=== PATIENT | female | born 1995 | race Caucasian/White ===

== ENCOUNTER 2017-01-06 21:10 | Emergency (ER) | payer OTHER ==
[2017-01-06 21:17] VITALS: BP 102/76; PULSE 98; TEMP 98.7; BMI 19.8
--- NOTE | 2017-01-06 21:52 | PDOC ---
History of Present Illness - General Chief Complaint: Injury Stated Complaint: FALL Time Seen by Provider: 01/06/17 21:21 History Source: Patient Exam Limitations: No Limitations - History of Present Illness Initial Comments: 01/06/17 21:58 This is a 21-year-old female who comes in for evaluation status post fall during [employer] practice. Patient was tossed into the air and not caught. When she came down she landed on a mat on her left side. Patient's head struck the mat however she denied any loss of consciousness headache, change in vision or neurological complaints. Patient's only complaint at this time is some mild discomfort in the left ankle area. Patient is been able to ambulate on the ankle without difficulty. Patient denies any other pain or injury. PAST MEDICAL HISTORY: no significant history PAST SURGICAL HISTORY: no significant history FAMILY HISTORY: no pertinant history SOCIAL HISTORY: Pt lives with family and attends school MEDICATIONS: reviewed ALLERGIES: As per nursing notes Review of Systems General: No fevers or chills, no weakness, no weight loss HEENT: No change in vision. No sore throat,. No ear pain CardioVascular: No chest pain or shortness of breath Respiratory:No cough, or wheezing. Gastrointestinal: no nausea, vomitting, diarrhea or constipation, No rectal bleeding Genitourinary: No dysuria, hematuria, or frequency Musculoskeletal: Left ankle as per history of present illnessizziness or loss of consciousness Psychiatric: nor depression Skin: No rashes or easy bruising Endocrine: no increased thirst or abnormal weight change Allergic: no skin or latex allergy All other systems reviewed and normal GENERAL: The patient is awake, alert, and fully oriented, in no acute distress. HEAD: Normal with no signs of trauma. Cervical, lumbar, and thoracic spine no tenderness on palpation. EYES: Pupils equal, round and reactive to light, extraocular movements intact, sclera anicteric, conjunctiva clear. EXTREMITIES: Normal range of motion, no edema. Left ankle: There is no ecchymosis or swelling of the ankle. There is no bony tenderness of the ankle foot or lower leg. There is some mild tenderness of the soft tissues of the ankle. Neurovascular is intact. NEUROLOGICAL: Normal speech, normal gait. PSYCH: Normal mood, normal affect. SKIN: Warm, Dry, normal turgor, no rashes or lesions noted. Assessment and plan: This is a 21-year-old female who was dropped during a cheerleading practice. Patient landed on a mat. Patient has some mild discomfort of her left ankle but no bony tenderness. Patient reassured that she will most likely have some muscle soreness but otherwise there are no broken bones. Patient told to take Tylenol or Motrin for the discomfort and follow up with her primary care doctor as needed. Past History - Past Medical History Allergies/Adverse Reactions: Allergies Allergy/AdvReac Type Severity Reaction Status Date / Time No Known Allergies Allergy Verified 04/25/15 11:14 Home Medications: Ambulatory Orders NK [No Known Home Medication] 01/06/17 Other medical history: DENIES - Immunization History Immunization Up to Date: Yes - Psycho/Social/Smoking Cessation Hx Anxiety: No Suicidal Ideation: No Smoking History: Never smoked Have you smoked in the past 12 months: No Number of Cigarettes Smoked Daily: 0 Hx Alcohol Use: No Substance Use Type: Marijuana *Physical Exam - Vital Signs Last Vital Signs Temp Pulse Resp BP Pulse Ox 98.7 F 98 H 16 102/76 100 01/06/17 21:15 01/06/17 21:15 01/06/17 21:15 01/06/17 21:15 01/06/17 21:15 ED Treatment Course - ADDITIONAL ORDERS Additional order review: Laboratory Results 01/06/17 21:15 Urine HCG, Qual Negative *DC/Admit/Observation/Transfer Diagnosis at time of Disposition: Contusion of left ankle or foot Fall Qualifiers: Encounter type: initial encounter Qualified Code(s): W19.XXXA - Unspecified fall, initial encounter - Discharge Dispostion Disposition: HOME Condition at time of disposition: Stable - Referrals Referrals: Derik Leija MD [Primary Care Provider] - - Patient Instructions Additional Instructions: You may find that you well have increased soreness and discomfort over the next 24-48 hours if you do you can take Tylenol or ibuprofen for the pain. Return to the emergency department immediately with ANY new, persistent or worsening symptoms. Continue any medications as previously prescribed by your physician. You should follow up with your primary doctor as soon as possible regarding today's emergency department visit. . Please make sure your doctor reviews the results of your emergency evaluation. Thank you for coming to the Emergency Department today for your care. It was a pleasure to see you today. Please note that your evaluation is INCOMPLETE until you follow-up with your doctor.
== END 2017-01-06 22:02 | disposition home or self-care (01) ==
LOC: FER 21:10
DX: S90.02XA Contusion of left ankle, initial encounter (principal); W04.XXXA Fall while being carried or supported by other persons, initial encounter; Y93.45 Activity, cheerleading; Y92.9 Unspecified place or not applicable
CPT/HCPCS: 84703; 99282-25

== ENCOUNTER 2022-10-23 14:46 | Emergency (ER) | payer OTHER ==
[2022-10-23 15:10] VITALS: BP 112/65; PULSE 96; RESP 16; TEMP 99.5; BMI 21.9
== END 2022-10-23 15:17 | disposition home or self-care (01) ==
LOC: FER 14:46
DX: S09.93XA Unspecified injury of face, initial encounter (principal)
CPT/HCPCS: 99283-25